=== PATIENT | female | born 1990 | race Caucasian/White ===

== ENCOUNTER 2019-06-08 15:25 | Outpatient (CLI) | payer MEDICAID, SELFPAY ==
[2017-03-24 16:38] VITALS: BMI 20.1
[2019-06-08 15:53] VITALS: BMI 24.3
--- NOTE | 2019-06-08 22:34 | OB.TRI.NOTE ---
History of Present Illness Date of Service: 06/08/19 Was patient seen by the physician?: No Reason For Visit: R/O LABOR Date of Service: 06/08/19 Final JOEL: 06/26/19 Final JOEL Source: LMP Gestational age: 37 Weeks and 3 Days Allergies Penicillins Allergy (Mild, Verified 06/08/19 15:56) Unknown NST - FHR Rate Baby A Baseline: normal Variability:: Moderate Accelerations:: 15 x 15 Decelerations:: None NST Reactive:: Yes FHR Category:: Category I Uterine Activity:: irreg ctxs Impression/Plan 28-year-old 2 para 1 at 37-3/7 weeks gestation with false labor. Discharged home with labor precautions. Follow-up in the office within 1 week or as needed.
== END 2019-06-08 16:25 | disposition home or self-care (01) ==
LOC: WPOUT 15:30 → OBT 15:32
PROVIDERS: Family Provider Family Medicine; PCP Family Medicine; Referring Provider Obstetrics & Gynecology; Visit Provider Obstetrics & Gynecology
DX: O47.1 False labor at or after 37 completed weeks of gestation (principal); Z3A.37 37 weeks gestation of pregnancy
CPT/HCPCS: 59025; 59050; 99218; G0378

== ENCOUNTER 2019-06-17 13:50 | Outpatient (CLI) | payer MEDICAID, SELFPAY ==
[2019-06-17 14:40] VITALS: BMI 24.7
[2019-06-17 14:50] LABS: ROM Internal Control Test YES-OK TO RESULT pt. (Internal QC); ROM Patient Test Negative (Negative); Record Kit Lot#, ROM+ J8255
--- NOTE | 2019-06-17 18:48 | OB.TRI.NOTE ---
History of Present Illness Date of Service: 06/17/19 Was patient seen by the physician?: Yes Reason For Visit: RO RUPTURE Date of Service: 06/17/19 Final JOEL: 06/26/19 Final JOEL Source: LMP Gestational age: 38 Weeks and 5 Days History of Present Illness: 28-year-old 2 para 1 presents complaining of contractions and some increased vaginal discharge. She had a negative ROM plus test. Contractions are somewhat irregular, she states they are little bit stronger now than they were earlier in the day. However, overall they are less intense than yesterday. She has had good movement. She has had a mild intermittent headache, but this is not new for her. She denies any epigastric pain. Allergies Penicillins Allergy (Mild, Verified 06/08/19 15:56) Unknown Laboratory Studies: Laboratory Tests 06/17/19 Range/Units 14:05 Vag Amniotic Fld Detect Negative (Negative) Physical Exam General: Alert, Cooperative, No apparent distress Abdomen: Soft, Non-Distended, Gravid, Appropriate for Gestational Age Extremities:: No edema WIRE COMMUNICATIONS ENGINEER: Normal external genitalia Estimated gestational size: Appropriate for gestational size Presentation: Cephalic Cervix Dilation (cm): 4 Station: -2 Effacement (%): 80 NST - FHR Rate Baby A Baseline: 125 Variability:: Moderate Accelerations:: 15 x 15 Decelerations:: Variable - possible variable vs detection of maternal heart rate w/ maternal movement NST Reactive:: Yes FHR Category:: Category I - for > 20 min before discharge Uterine Activity:: irreg ctxs Impression/Plan 28-year-old 2 para 1 at 38-5/7 weeks gestation with false labor. I discussed with her that after several hours, she has not progressed. She is not in active labor. She does not appear uncomfortable with these irregular contractions. I discussed with her to return if the contractions increase in frequency and/or intensity. Return if any spontaneous rupture membranes. In addition, we discussed risk benefits and alternatives to elective induction at 39 weeks. Patient would like to proceed with this as she had a fast labor last time and she is worried about precipitous delivery and not making it to the hospital in time. Consent was signed for this.
== END 2019-06-17 18:35 | disposition home or self-care (01) ==
LOC: WPOUT 14:18 → WP 14:18
PROVIDERS: Family Provider Family Medicine; PCP Family Medicine; Referring Provider Obstetrics & Gynecology; Visit Provider Obstetrics & Gynecology
DX: O47.1 False labor at or after 37 completed weeks of gestation (principal); O26.893 Other specified pregnancy related conditions, third trimester; R51 Headache; O76 Abnormality in fetal heart rate and rhythm complicating labor and delivery; Z3A.38 38 weeks gestation of pregnancy
CPT/HCPCS: 59025; 59050; 84112; 99218; G0378

== ENCOUNTER 2019-06-19 06:47 | Inpatient (IN) | payer MEDICAID, SELFPAY ==
[2019-06-19] VITALS (11 sets, daily range): BP systolic 103–128; BP diastolic 60–83; PULSE 72–100; RESP 16–20; TEMP 36.2–37.2; O2SAT 95–100; BMI 25.1
[2019-06-19] MEDS: Lactated Ringers 1,000 ML 50 ML IV (08:00)
[2019-06-19 08:48] LABS: Absolute Lymphocyte Count 1.49 X10^3/uL (0.83-4.51); Absolute Neutrophil Count 12.3 X10^3/uL (2.0-7.7); Basophil# 0.08 X10^3/uL; Basophil% 0.5 % (0-1); Eosinophil# 0.14 X10^3/uL; Eosinophils% 0.9 % (0-5); Hemoglobin 10.3 g/dL (12.0-15.0); Lymphocyte # 1.49 X10^3/ul (4.0); Lymphocyte % 9.5 % (19-41); Mean Corp Hgb Conc 33.2 g/dL (32-36); Mean Corpuscular Hgb 32.5 pg (27.0-32.0); Mean Corpuscular Volume 97.8 fL (81-99); Mean Platelet Vol. 11.5 fl (6.2-12.0); Monocyte# 1.27 X10^3/uL; Monocyte% 8.1 % (0-10); NRBC Flagged by Analyzer 0 % (0-5); Neutrophil # 12.32 X10^3/uL (2.7-7.7); Neutrophil % 78.8 % (47-70); Platelet Count 311 K/mm3 (150-450); RBC Distribution Width CV 13.2 % (11.6-14.6); RBC Distribution Width SD 47.4 fl (35.1-43.9); Red Blood Count 3.17 M/mm3 (4.2-5.4); White Blood Count 15.6 K/mm3 (4.4-11.0)
[2019-06-19] MEDS: Lactated Ringers 500 ML 999 ML IV (08:48)
[2019-06-19 09:38] LABS: Amphetamine Urine VISTA NEGATIVE (<1000 ng/mL); Barbiturate Urine VISTA NEGATIVE (< 200 ng/mL); Benzodiazepine Urine VISTA NEGATIVE (< 200 ng/mL); Cocaine Urine VISTA NEGATIVE (< 300 ng/mL); Ecstacy Urine VISTA NEGATIVE (< 500 ng/mL); Methadone Urine VISTA NEGATIVE (< 300 ng/mL); PCP Urine VISTA NEGATIVE (< 25 ng/mL); THC Urine VISTA POSITIVE (< 50 ng/mL); Vista UDS pH Range 6
[2019-06-19] MEDS: fentaNYL-bupivacaine (epidural) 100 ML BAG EPIDURAL ×2 (10:05→14:58)
[2019-06-19 11:30] LABS: Chlamydia Trachomatis by PCR Negative (Negative); Neisserai gonorrhoeae by PCR Negative (Negative); Probe Check PASS; Sample Adequacy Control PASS; Specimen Processing Control PASS
[2019-06-19] MEDS: Oxytocin 30 units/NS 500 ml 30 UNITS/500 ML IV.SOLN IV (11:33)
--- NOTE | 2019-06-19 12:18 | HP.PCM_ITS ---
History Date of Admission: 06/19/19 Final JOEL: 06/26/19 Final JOEL Source: LMP Gestational age: 39 Weeks and 0 Days History of this : 28-year-old 2 para 1-0-0-1 female presents at 39 weeks gestation for induction of labor due to favorable cervix and history of rapid labor last time. has been complicated to date by 3 of anxiety and depression, and marijuana use during the . [place] 21 [place]. She has been smoking during the . obstetrical history 1 full-term vaginal delivery without complications Allergies Penicillins Allergy (Mild, Verified 06/08/19 15:56) Unknown bupropion [From Wellbutrin] Allergy (Verified 06/19/19 08:01) Unknown Home Medications: Home Medications Acetaminophen 650 mg PO Q8 PRN 06/08/19 Famotidine [Pepcid] 20 mg PO BID PRN 06/08/19 Vit No.130/Iron/Folic [ Tablet] 1 ea PO DAILY 06/08/19 Smoking Status: Heavy Smoker (>10/day) Substance Use Type: Marijuana History Past Pregnancies: Past Pregnancies Delivery Date Name GA/Weeks Outcome Route Weight Infant Gender Labor Length Anesthesia Delivery Location Provider FOB Expected Delivery Method: Spontaneous Vaginal Review of Systems Constitutional: Denies: Chills, Fever Eyes: Denies: Blurred vision Cardiovascular: Denies: Chest Pain Respiratory: Denies: Cough Skin: Denies: Rash Neurological: Denies: Blurred vision Physical Exam General: Alert, Cooperative, No apparent distress Cardiovascular: Regular rate Lungs: Normal air movement Abdomen: Soft, Non-Distended, Gravid, Appropriate for Gestational Age Extremities:: Other - edema trace Assessment/Plan This is a 28 year-old, 2 para 1-0-0-1 at 39 weeks gestation with advanced cervical dilation, history of previous rapid labor presents for elective induction of labor. Risk benefits and alternatives to induction were discussed with the patient, questions were answered to her satisfaction she janell res to proceed. Will obtain urine tox screen due to history of cannabinoid use during the . May have epidural, nitrous oxide or Nubain as needed. We will proceed to perform Pitocin and artificial rupture membrane induction. Estimated weight is less than 4000 g clinically and pelvis is clinically adequate to expect vaginal delivery.
[2019-06-19] MEDS: Oxytocin 30 units/NS 500 ml 30 UNITS/500 ML IV.SOLN 334 UNITS IV (13:39)
--- NOTE | 2019-06-19 13:58 | PCM.OPRPT ---
Vaginal Delivery Maternal Presentation: Elective Induction Method of Induction: Pitocin, Amniotomy Amniotic Membrane Rupture Type: Artificial Amniotic Fluid Description: Clear Final JOEL: 06/26/19 Final JOEL Source: US <20 weeks Gestational age: 39 Weeks and 0 Days Date of Procedure: 06/19/19 Pre-Operative Diagnosis: labor Post-Operative Diagnosis: same Surgery/ Procedure Performed: Spontaneous Vaginal Delivery Type of Anesthesia: Epidural Description of Procedure: A vigorous male infant was delivered CALVIN over mall first-degree perineal laceration. The remainder the infant was delivered with maternal pushing and gentle traction only in less than 15 seconds. The Pitocin infusion was initiated for active management of the third stage. The cord was clamped and cut to pulsations ceased. The was attended to by the waiting nursing staff. The placenta was delivered spontaneously and intact. The cervix and vagina were intact. First-degree perineal laceration was repaired with 3-0 Vicryl Rapide suture in a running standard fashion. Sponge and needle counts were correct. A vaginal sweep was completed by me. Presentation: CALVIN Placental Delivery Description: Spontaneous Placenta Disposition: [facility] Cord Vessel Description: 3 Vessels Cord Entanglement: None Drain: - - none Estimated Blood Loss: 300 (1 minute): 8 (5 minute): 9 Episiotomy Description: None Laceration: 1st degree Medications given after delivery: IV Pitocin Complications: None
--- NOTE | 2019-06-19 16:50 | FALS_PTH ---
PATIENT: SHELLI SHORT LOC: [facility] U#:[id number] AGE/SX: 28/F ROOM: WP010 RE06/19/[address]: Dr. Sobia Parsons, MDDOB: 1990 BED: 1 DIS: 06/20/2019 SPEC #: [id number] RECD: 06/20/19 12:06 STATUS: YEE KRIS #: [id number] SOMMER: 06/19/19 16:[address]: Connie Castaneda DEPT: SURGICAL PATHOLOGY RECD BY: Pito Veras ENTERED: 06/20/19 12:06 SP TYPE: FALL TUBES OTHR DR: MD Dr. Parth Alvarado MD Tissues: Fallopian tube Procedures: Surgery Specimen Level II HEADER OPERATION: Tubal ligation PRE-OP DIAGNOSIS: Sterilization TISSUE SUBMITTED: Fallopian tubes, right with suture MICROSCOPIC DIAGNOSIS Right and left fallopian tubes, bilateral salpingectomies: Two complete cross-sections of fallopian tubes with no pathologic change. AM:natalie 06/21/19 MICROSCOPIC DESCRIPTION Slides are reviewed. GROSS DESCRIPTION Received is one container labeled with the patient's name and designated bilateral fallopian tubes, right with suture. The specimen consists of bilateral fallopian tubes including fimbrial ends. The right fallopian tube identified by a suture measures 7 cm in length and 0.5 cm in diameter. The left fallopian tube measures 6.5 cm in length and 0.5 cm in diameter. Sections do not reveal any mass lesion. The fallopian tubes are not identified as right or left. Sections reveal unremarkable cut surfaces. Fall Intern sections are submitted in two cassettes as follows: 1 - right fallopian tube, 2 - left fallopian tube. / DANIEL:natalie 06/20/19 TC:4 CPT: 83274 x2
--- NOTE | 2019-06-19 17:12 | PCM.OPRPT ---
Report of Operation Date of Procedure: 06/19/19 Pre-Operative Diagnosis: Sterilization request Post-Operative Diagnosis: Same Surgery/Procedure Performed:: bilateral salpingectomy Description of Surgical Findings:: Normal uterine fundus, tubes and ovaries stripper machine operator: None Type of Anesthesia:: Epidural/Supplement Anesthesiologist: Amrik Dean Special Medications: None Specimen's removed: Bilateral fallopian tube Drains: Smith Estimated Blood Loss (mL): 10 Fluids Replaced: 300 Description of Procedure: Patient was taken to the operating room where she is prepped and draped in dorsal supine position. 1% Xylocaine was used to anesthetize the skin. Patient anesthesia level was then adequate to initiate the tubal. A 4 cm subumbilical incision was made in the skin and carried through to underlying layer fascia with the scalpel. The fascia was tented up with Allis clamps and entered sharply. The peritoneum was then entered bluntly. The fascia was tagged with 0 Vicryl suture. The patient was then tilted to the left and the right fallopian tube was identified and followed out to the fimbriated end. The LigaSure device was then used to clamp, seal and transect the antimesenteric portions of the tube to the insertion at the cornua. I clamped, sealed and transected the tube off the cornua with the LigaSure device. The tube was handed off and the pedicles were hemostatic. The same procedure was performed on the contralateral side. And hemostasis was noted. The specimens were handed off. The fascia was then closed in a running standard fashion with the 0 Vicryl suture. Cutaneous tissue was examined and hemostatic. The skin was closed with 4-0 Monocryl suture in a subcuticular fashion. I performed the entire procedure. Sponge and needle counts were correct. The patient was taken back to her room for recovery. Grafts/Implants Used: none - Complications none - Admit VTE Documentation VTE Present on Admission: No VTE Mechan Device Prophylaxis: SCD's VTE Pharm Prophylaxis ordered?: No Reason prophylaxis not ordered:: Procedure Not Indicated
[2019-06-19] MEDS: Acetaminophen 500 MG Tablet 1000 MG PO (17:32)
[2019-06-19 17:56] LABS: Pathology Specimen OB SEE PATHOLOGY REPORT
[2019-06-19] MEDS: oxyCODONE 5 MG Tablet PO (19:54)
[2019-06-20 01:00] VITALS: BP 118/58; PULSE 83; RESP 18; TEMP 36.6
[2019-06-20] MEDS: oxyCODONE 5 MG Tablet PO ×4 (01:07→18:35)
[2019-06-20] MEDS: Naproxen 250 MG Tablet 500 MG PO ×2 (02:01→11:56)
[2019-06-20 05:00] VITALS: BP 100/52; PULSE 74; RESP 18; TEMP 36.5; O2SAT 97
--- NOTE | 2019-06-20 09:09 | PN.OBGYN_ITS ---
Subjective: Doing well per patient and nursing staff. Ambulating and taking PO without difficulty. Voiding and passing flatus. Denies any chest pain, SOB, or leg pain. Denies any increased vaginal bleeding or clots. - Physical Exam General: Alert, Oriented x3, Cooperative HEENT: Atraumatic, Normocephalic Neck: Trachea Midline Lungs: Clear to auscultation, Normal air movement, No rhonchi, No wheeze Cardiovascular: Regular rate, No murmurs Abdomen: Bowel Sounds Present, Soft, Non Tender Extremities: No edema Psych/Mental Status: Normal Affect, Appropriate Vital Signs Temp Pulse Resp BP Pulse Ox 97.7 F L 74 18 100/52 L 97 06/20/19 05:00 06/20/19 05:00 06/20/19 05:00 06/20/19 05:00 06/20/19 05:00 Oxygen Delivery Method Room Air Weight: 151 lb 3.2 oz Body Mass Index (BMI) 25.1 Intake and Output for Last 24 Hours 06/18/19 06/19/19 06/20/19 23:59 23:59 23:59 Intake Total 2855.37 / 2855.37 Output Total 850 / 850 600 / 600 Balance 2004.37 / 2004.37 -600 / -600 Laboratory Tests Past 24 Hrs 06/19/19 06/19/19 06/19/19 07:55 08:30 08:30 Urine Opiates Screen NEGATIVE Urine Methadone Screen NEGATIVE Ur Barbiturates Screen NEGATIVE Ur Phencyclidine Scrn NEGATIVE Ur Amphetamines Screen NEGATIVE U Methamphetamin-MDMA NEGATIVE U Benzodiazepines Scrn NEGATIVE Urine Cocaine Screen NEGATIVE U Cannabinoids Screen POSITIVE H Ur Drug Screen Comment Chlam trachomat DNA PCR Negative N.gonorrhoeae DNA (PCR) Negative Blood Type O POSITIVE Antibody Screen NEGATIVE Medical Necessity - Tobacco Use Smoking Status: Heavy Smoker (>10/day) Assessment/Plan A:PPD#1 Bilateral salpingectomy P: 1) Planning D/C home today. Discharge order given 2) Seen by transition social worker, CPS will follow up with patient at home. 3) Follow up in 2 weeks and 6 weeks.
[2019-06-20 09:20] VITALS: BP 117/80; PULSE 80; RESP 18; TEMP 36.6
[2019-06-20 09:55] LABS: Hematocrit 33.4 % (37-47); Mean Corp Hgb Conc 32.9 g/dL (32-36); Mean Corpuscular Hgb 32.6 pg (27.0-32.0); Mean Corpuscular Volume 99.1 fL (81-99); Mean Platelet Vol. 11.8 fl (6.2-12.0); Platelet Count 297 K/mm3 (150-450); RBC Distribution Width CV 13.4 % (11.6-14.6); RBC Distribution Width SD 48.3 fl (35.1-43.9); Red Blood Count 3.37 M/mm3 (4.2-5.4)
[2019-06-20 13:02] VITALS: BP 124/74; PULSE 74; RESP 16; TEMP 37
[2019-06-20] MEDS: Senna/Docusate Sodium 1 Tablet PO (15:28)
[2019-06-20] MEDS: Acetaminophen 500 MG Tablet 1000 MG PO (15:36)
[2019-06-20 16:06] VITALS: BP 122/76; PULSE 98; RESP 18; TEMP 36.8
--- NOTE | 2019-06-20 19:00 | DCINST_ITS ---
Discharge Diet: No Restrictions Discharge Activity: Return to Normal Activity, May not drive while taking narcotic pain medications., May Shower, May Take a Tub Bath May resume sexual activity in: 4-6 weeks Weight Bearing Status: Full weight bearing Additional Activity Instructions:: Nothing in the vagina for 4-6 weeks. You may return to work/school in 6 weeks. Call your doctor if your incision/area has: Continuous Slow Oozing, Sudden Increased Bleeding, Increased Pain/ Swelling, Increased Redness, Foul Smelling Discharge Call your doctor if you observe: Fever of 101 or Higher, Inability to urinate, Inability to have a bowel movement, Using more than one pad per hour, Shortness of breath, Chest pain, Prolonged hiccoughing, Increased palpitations (irregular heartbeat), Calf discomfort, Uncontrolled pain Additional Instructions: If you experience any of the following, contact your healthcare provider. * Bleeding that soaks a pad every hour for 2 hours * Fever 100.4 or higher * Unrelieved incision or abdominal pain * Swelling, redness, discharge or bleeding from your incision or episiotomy site * Your incision begins to separate * Problems urinating (including inability to urinate or burning while urinating). * Visual changes * Severe headache * Flu-like symptoms * Pain or redness in one of both of your breasts * Pain, warmth, tenderness or swelling in your legs, especially the calf area * Frequent nausea and vomiting * Symptoms of depression or anxiety If you experience any of the following, call 911 or go to the nearest Emergency Room. * Chest pain * Problems breathing * Seizure activity * Partial or complete paralysis of a body part, slurred speech, weakness or drooping of the face, or a sudden inability to walk or hold your balance Allergies/Adverse Reactions: Allergies Penicillins Allergy (Mild, Verified 06/08/19 15:56) Unknown bupropion [From Wellbutrin] Allergy (Verified 06/19/19 08:01) Unknown Medications to take at Discharge Acetaminophen 650 mg PO Q8 PRN 06/08/19 Famotidine [Pepcid] 20 mg PO BID PRN 06/08/19 Vit No.130/Iron/Folic [ Tablet] 1 ea PO DAILY 06/08/19 Naproxen [Naprosyn] 500 mg PO Q8H PRN PRN #30 tab 09/23/19 Oxycodone [Oxyir] 5 mg PO Q4H PRN PRN 7 Days #8 tab 06/20/19 The following prescriptions were given: Naproxen [Naprosyn] 500 mg PO Q8H PRN PRN #30 tab PRN Reason: MILD PAIN (-12/05) Transmission Status: Received by [facility]30 Oxycodone [Oxyir] 5 mg PO Q4H PRN PRN 7 Days #8 tab PRN Reason: Severe Pain (-07/07) Prescription Printed Please Follow Up With: Connie Castaneda MD When: Call to make an appointment with your doctor in 2 weeks and 6 weeks. Primary Care Physician: Parth Winter MD [Primary Care Provider] - Test Results: Test results from this visit will be discussed in further detail at your follow- up appointment, if applicable.
== END 2019-06-20 19:00 | disposition home or self-care (01) | DRG 541 ==
PROVIDERS: Obstetrics & Gynecology; Admitting Provider Obstetrics & Gynecology; Family Provider Family Medicine; PCP Family Medicine; Visit Provider Obstetrics & Gynecology
DX: O99.334 Smoking (tobacco) complicating childbirth (principal); Z30.2 Encounter for sterilization; O34.33 Maternal care for cervical incompetence, third trimester; O70.0 First degree perineal laceration during delivery; Z37.0 Single live birth; Z3A.39 39 weeks gestation of pregnancy
CPT/HCPCS: 59025; 59050; 76815; 80307; 84112; 85025; 85027; 86850; 86900; 86901; 87491; 87591; 88302; 99218; J7120; G0378

== ENCOUNTER 2022-12-07 12:51 | Emergency (ER) | payer OTHER, MEDICAID, SELFPAY ==
[2022-12-07 12:53] VITALS: BP 125/92; PULSE 97; RESP 18; TEMP 36.6; O2SAT 100; BMI 23.3
[2022-12-07] MEDS: Lidocaine/Epi/Tetracaine 50 ML 1 APPLIC TOPICAL (13:16)
--- NOTE | 2022-12-07 13:38 | ED.VIS.FALL ---
HPI HPI - Fall History of Present Illness Chief Complaint: Fall Informant: patient Narrative Narrative: Patient presents after a fall at home. She was carrying laundry down the stepped. This caused her foot to slip out from under her and she fell backwards. She hit her head in the back. She has pain actually in the posterior head/scalp. But she does not have a diffuse headache. No anterior head pain. She never lost consciousness. She is not on any blood thinners. She does not and has never had any neurologic symptoms after this. She is not nauseated. Tetanus is up-to-date. She did have some bleeding and is concerned on how bad the laceration is. She does not have any pain in arms legs or anywhere else. This was a mechanical slip and fall and not syncopal. PFSH PFSH Home Medications acetaminophen 325 mg tablet 650 mg PO Q8 PRN Pain 06/08/19 [History Last Taken 06/18/19 23:00] famotidine 20 mg tablet 20 mg PO BID PRN Heartburn 06/08/19 [History Last Taken Unknown] vits no.130-ferrous fum 27 mg iron-folic acid 800 mcg tablet 1 ea PO DAILY vitamin 06/08/19 [History Last Taken 06/18/19] naproxen 250 mg tablet 500 mg PO Q8H PRN PRN MILD PAIN (1-310) #30 tabs 06/20/19 [Rx Last Taken Unknown] Allergy/AdvReac Type Severity Reaction Status Date / Time Penicillins Allergy Mild Unknown Verified 12/07/22 12:55 bupropion [From Wellbutrin] Allergy Unknown Verified 12/07/22 12:55 Social History Smoking Status: Heavy Smoker (>10/day) ROS ROS ED Constitutional Constitutional ED: Denies chills or fever(s) Eyes Eyes: Denies blurry vision, change in vision or diplopia ENT ENT ED: Denies rhinorrhea Cardiovascular Cardiovascular: Denies chest pain or palpitations Respiratory/Chest Respiratory/Chest: Denies cough Gastrointestinal Gastrointestinal: Denies nausea or vomiting Musculoskeletal Musculoskeletal: Denies back pain, myalgias or neck pain Integumentary Reports other Details: Laceration posterior Neurologic Neurologic: Reports other Details: Patient has localized pain in the scalp where her laceration is but not a diffuse headache ; Denies headache(s), paresthesias or weakness Hematologic/Lymphatic Hematologic/Lymphatic: Denies easy bleeding or easy bruising Allergic/Immunologic Allergic/Immunologic ED: Denies urticaria EXAM Physical Exam Narrative Exam Narrative: Patient is awake alert no acute distress. She admits to feeling a bit anxious but that is common for her. She is not toxic. She carries on normal conversation and is consistent in her story. HEENT: There is a laceration posterior scalp about 1.5 cm in length. No active bleeding. No step-off near it. There is tenderness just mild around it but the rest of her scalp is not tender. No notable swelling. No anterior tenderness or trauma. Neck shows no tenderness or pain with motion Lungs are clear bilaterally no pain with a deep breath. Saturations are normal 100% on room air. Heart is regular. Normal distal pulses. Abdomen is soft and nontender Extremities show no tenderness or pain with motion Back shows no tenderness in the back cervical thoracic or lumbar sacral area. Const Vital Signs: 12/07/22 12:53 12/07/22 13:04 Temperature 97.8 F Temperature Source Temporal Pulse Rate 97 Respiratory Rate 18 Respiratory Effort Normal Non-Labored Respiratory Depth Normal Respiratory Pattern Normal Blood Pressure 125/92 H Blood Pressure Mean 103 Pulse Ox 100 Oxygen Delivery Method Room Air Room Air MDM MDM MDM Narrative Medical decision making narrative: I do not think the patient needs a CT scan of the head. She hit her head but has localized pain not diffuse pain. She has never had nausea vomiting loss of consciousness or neurologic symptoms. She has no distracting injury. No indication of intoxication. She is not on any anticoagulation. We did apply L ET to the wound. Procedure: Staple of scalp laceration: I discussed risk benefits and options with the patient. She would like this closed. We applied LAT to the wound. We got moderately good anesthesia. The laceration was only about 1.5 cm in length. It was able to be closed with a single staple right in the middle. I think this was worth doing as the area was open. But it is closed and much better now patient actually tolerated this quite well. We did clean the area first and irrigated. Discharge Plan Triage Chief Complaint: Fall ED Provider: Doc Magaña Dx/Rx/DC Orders Clinical Impression: Fall on steps, Laceration of scalp Instructions: ED Laceration Scalp Stitches or Samia Prescriptions: No Action acetaminophen 325 MG tablet 650 mg PO Q8 PRN (Reason: Pain) famotidine 20 MG tablet 20 mg PO BID PRN (Reason: Heartburn) vit no.[id number] 1 EACH tablet 1 ea PO DAILY naproxen 250 MG tablet 500 mg PO Q8H PRN PRN (Reason: MILD PAIN (1-12/05)) Qty: 30 0RF Primary Care Provider: Parth Winter Referrals: Parth Winter MD [Primary Care Provider] - 5 Days for suture removal Disposition Disposition: Home, Self Care
== END 2022-12-07 14:33 | disposition home or self-care (01) ==
PROVIDERS: Emergency Provider Emergency Medicine; PCP Family Medicine; Visit Provider Emergency Medicine
DX: S01.01XA Laceration without foreign body of scalp, initial encounter (principal); F17.200 Nicotine dependence, unspecified, uncomplicated; W10.9XXA Fall (on) (from) unspecified stairs and steps, initial encounter; Y92.009 Unspecified place in unspecified non-institutional (private) residence as the place of occurrence of the external cause
CPT/HCPCS: 12001; 99282